=== PATIENT | female | born 1965 | race Asian ===

== ENCOUNTER 2019-07-20 18:01 | Emergency (ER) | payer OTHER ==
[2019-07-20 18:14] VITALS: BP 163/89
--- NOTE | 2019-07-20 19:05 | ED Physician Documentation ---
PD HPI URI - Stated complaint Stated Complaint: COUGHING - Chief complaint Chief Complaint: Heent - History obtained from History obtained from: Patient, Family () - History of Present Illness Timing - onset: Other (For about 1.5 to 2 months she has had a severe cough. Is minimally productive. She has mild shortness of breath with it. No fevers. She is been seen a couple of times in the [place]. Per the she had a negative chest x-ray approximately 2 years ago. She was given a panopoly of allergy medications with out relief.) Review of Systems Constitutional: denies: Fever, Chills Cardiac: denies: Chest pain / pressure, Palpitations, Pedal edema, Calf pain Respiratory: denies: Hemoptysis, Wheezing GI: denies: Abdominal Pain, Abdominal Swelling, Nausea, Vomiting PD PAST MEDICAL HISTORY - Present Medications Home Medications: Ambulatory Orders Medication Instructions Recorded Confirmed Azelastine/Fluticasone [Dymista 23 gm NS 07/20/19 Nasal [place]] Benzonatate [Tessalon Perle] 100 - 200 mg PO TID PRN #30 capsule 07/20/19 Doxycycline Hyclate 100 mg PO BID #20 capsule 07/20/19 Fexofenadine HCl [Rebecca Allergy] 60 mg PO 07/20/19 07/20/19 guaiFENesin/CODEINE [Robitussin AC] 5 - 10 ml PO Q6H PRN #120 ml 07/20/19 predniSONE [Deltasone] 20 mg PO [id number] #21 tab 07/20/19 - Allergies Allergies/Adverse Reactions: Allergies Allergy/AdvReac Type Severity Reaction Status Date / Time No Known Drug Allergies Allergy Verified 07/20/19 18:11 - Social History Does the pt smoke?: No Smoking Status: Never smoker PD ED PE NORMAL - Vitals Vital signs reviewed: Yes - General General: Alert and oriented X 3, Other (Frequent bronchitic cough) - HEENT HEENT: Pharynx benign - Cardiac Cardiac: RRR, No murmur - Respiratory Respiratory: No respiratory distress, Other (Slightly diminished throughout, nonlabored, frequent coughing) - Abdomen Abdomen: Non tender - Extremities Extremities: No edema, No calf tenderness / cord - Neuro Neuro: Alert and oriented X 3, Normal speech Results - Vitals Vitals: Vital Signs - 24 hr 07/20/19 18:11 Temperature 36.9 C Heart Rate 93 Respiratory 15 Rate Blood Pressure 163/89 H O2 Saturation 100 Oxygen O2 Source Room air PD MEDICAL DECISION MAKING - ED course ED course: Given the time course she does fit IDSA criteria for a trial of antibiotic therapy. Departure - Departure Disposition: 01 Home, Self Care Clinical Impression: Cough Condition: Good Record reviewed to determine appropriate education?: Yes Instructions: Bronchitis Acute Dc Prescriptions: Benzonatate [Tessalon Perle] 100 - 200 mg PO TID PRN #30 capsule PRN Reason: Cough Doxycycline Hyclate 100 mg PO BID #20 capsule guaiFENesin/CODEINE [Robitussin AC] 5 - 10 ml PO Q6H PRN #120 ml PRN Reason: Cough predniSONE [Deltasone] 20 mg PO [id number] #21 tab Comments: Call your doctor to arrange a follow-up appointment, make the next available appointment. In the interim, return anytime if worse or if new symptoms develop.
== END 2019-07-20 19:09 | disposition home or self-care (01) ==
LOC: ED 18:01
DX: R05 Cough (principal); R06.02 Shortness of breath
CPT/HCPCS: 99283; 99284

== ENCOUNTER 2020-12-02 09:28 | Emergency (ER) | payer OTHER ==
[2020-12-02 10:00] LABS: BILIRUBIN,URINE NEGATIVE (NEGATIVE); GLUCOSE, URINE (UA) NEGATIVE (NEGATIVE); KETONES,URINE (UA) NEGATIVE (NEGATIVE); LEUKOCYTE ESTERASE, URINE LARGE (NEGATIVE); NITRITE,URINE NEGATIVE (NEGATIVE); OCCULT BLOOD,URINE LARGE (NEGATIVE); PROTEIN,URINE NEGATIVE (NEGATIVE); UROBILINOGEN,URINE 0.2 (NORMAL) E.U./dL (NORMAL)
[2020-12-02 10:01] LABS: CLARITY,URINE SL. CLOUDY (CLEAR)
[2020-12-02 10:02] LABS: HCG UR QUAL NEGATIVE
[2020-12-02 10:14] LABS: BACTERIA,URINE Moderate /HPF (None Seen); RBC,URINE TNTC /HPF (0-5); SQUAMOUS EPITHELIAL CELL,UR RARE Squamous (<= Few); WBC,URINE >25 /HPF (0-5)
[2020-12-02] MEDS ORDERED: NITROFURANTOIN MACRO 100 MG CAPSULE PO STA (10:24)
[2020-12-02] MEDS ORDERED: PHENAZOPYRIDINE 100 MG TABLET PO STA (10:24)
--- NOTE | 2020-12-02 10:25 | ED Physician Documentation ---
PD HPI FEMALE - Stated complaint Stated Complaint: FEMALE - Chief complaint Chief Complaint: UTI - History obtained from History obtained from: Patient - Additional information Additional information: Starting in the middle of the night last night she has had dysuria and frequency, also some hematuria. No flank pain or fevers. Review of Systems Constitutional: denies: Fever, Chills GI: reports: Reviewed and negative : reports: Dysuria, Frequency PD PAST MEDICAL HISTORY - Past Medical History Past Medical History: Yes Respiratory: Asthma Musculoskeletal: Osteoarthritis - Past Surgical History Past Surgical History: Yes - Present Medications Home Medications: Ambulatory Orders Medication Instructions Recorded Confirmed Hydrochlorothiazide 25 mg PO DAILY 12/02/20 12/02/20 Losartan [Cozaar] 50 mg PO DAILY 12/02/20 12/02/20 Nitrofurantoin Monohyd/M-Cryst 100 mg PO BID #10 cap 12/02/20 [Macrobid 100 mg Capsule] Phenazopyridine HCl [Pyridium] 200 mg PO TID PRN #6 tab 12/02/20 - Allergies Allergies/Adverse Reactions: Allergies Allergy/AdvReac Type Severity Reaction Status Date / Time No Known Drug Allergies Allergy Verified 12/02/20 09:43 - Social History Does the pt smoke?: No Smoking Status: Never smoker Does the pt drink ETOH?: Yes Does the pt have substance abuse?: No - Immunizations Immunizations are current?: Yes PD ED PE NORMAL - Vitals Vital signs reviewed: Yes - General General: Alert and oriented X 3, No acute distress - Abdomen Abdomen: Soft, Non tender - Back Back: No CVA TTP - Derm Derm: No rash - Neuro Neuro: Alert and oriented X 3, Normal speech Results - Vitals Vitals: Vital Signs - 24 hr 12/02/20 09:41 Temperature 36.0 C L Heart Rate 90 Respiratory 16 Rate Blood Pressure 122/80 O2 Saturation 100 Oxygen O2 Source Room air - Labs Labs: Laboratory Tests 12/02/20 09:47 Urine Color STRAW Urine Clarity SL. CLOUDY Urine pH 7.0 Ur Specific [place] <=1.005 Urine Protein NEGATIVE Urine Glucose (UA) NEGATIVE Urine Ketones NEGATIVE Urine Occult Blood LARGE H Urine Nitrite NEGATIVE Urine Bilirubin NEGATIVE Urine Urobilinogen 0.2 (NORMAL) Ur Leukocyte Esterase LARGE H Urine RBC TNTC H Urine WBC >25 H Ur Squamous Epith Cells RARE Squamous Urine Bacteria Moderate H Ur Microscopic Review INDICATED Urine Culture Comments INDICATED Urine HCG, Qual NEGATIVE Departure - Departure Disposition: Home, Self Care Clinical Impression: Cystitis Condition: Good Record reviewed to determine appropriate education?: Yes Instructions: ED UTI Cystitis Female Prescriptions: Nitrofurantoin Monohyd/M-Cryst [Macrobid 100 mg Capsule] 100 mg PO BID #10 cap Phenazopyridine HCl [Pyridium] 200 mg PO TID PRN #6 tab PRN Reason: dysuria Comments: We will culture your urine, the results should be done in 48-72 hours. If an antibiotic change is necessary we will call you. Return if worse in the meantime, especially if you develop increasing flank pain, fevers, or cannot keep down the medication.
[2020-12-02 10:33] VITALS: BP 117/81
== END 2020-12-02 10:58 | disposition home or self-care (01) ==
LOC: ED 09:28
DX: N30.91 Cystitis, unspecified with hematuria (principal)
CPT/HCPCS: 81001; 81025; 87086; 87181; 99283; A9270; 81003

== ENCOUNTER 2020-12-04 14:38 | Outpatient (CLI) | payer OTHER ==
--- NOTE | 2020-12-05 09:48 | Mammography Report ---
BILATERAL DIGITAL SCREENING MAMMOGRAM 3D/2D: 12/04/2020 CLINICAL: Routine screening. Comparison is made to exam dated: 11/13/2016 mammogram - [facility]. There are scatter ed fibroglandular elements in both breasts. There is a 0.5 cm irregular asymmetry with an indistinct margin in the right breast middle depth medi al region seen on the craniocaudal view only 6 cm from the nipple. No other significant masses, calcifications, or other findings are seen in either breast. IMPRESSION: INCOMPLETE: NEEDS ADDITIONAL IMAGING EVALUATION The 0.5 cm irregular asymmetry in the right breast is indeterminate. Additional views with possible ultrasound are recommended. This exam was interpreted at Station ID: [id number]. NOTE: For mammograms, a report in lay terms will be sent to the patient. Approximately 15% of breast malignancies will not be visualized mammographically. In the management of a palpable breast mass, a negative mammogram must not discourage biopsy of a clinically suspicious lesion. Electronically Signed By: Heber Frost acr/:12/04/2020 15:54:08 ACR BI-RADS Category 0: Incomplete 3340F PARENCHYMAL PATTERN: (A) - The breast(s) demonstrate(s) scattered fibroglandular densities. BI-RADS CATEGORY: (0) - 0 Mammo and [place] [id number] Immediate follow-up LATERALITY: (R)
== END 2020-12-04 14:39 | disposition home or self-care (01) ==
LOC: DI.N 14:38
DX: Z12.31 Encounter for screening mammogram for malignant neoplasm of breast (principal); N64.89 Other specified disorders of breast

== ENCOUNTER 2020-12-19 09:41 | Outpatient (CLI) | payer OTHER ==
--- NOTE | 2020-12-20 14:18 | Mammography Report ---
UNILATERAL RIGHT DIGITAL DIAGNOSTIC MAMMOGRAM 3D/2D: 12/19/2020 CLINICAL: Patient returns today to evaluate a focal asymmetry in the right breast. Comparison is made to exams dated: 12/04/2020 mammogram - [facility] and 11/13/2016 ma mmogram - [facility]. The tissue of right breast is heterogeneously dense. This may l ower the sensitivity of mammography. Redemonstration of previously described 0.5 cm oval focal asymmetry in the right breast at 1 o'clock posterior depth. This is seen in additional views and best visualized in the craniocaudal view. Thi s is a new finding compared to mammogram dated 2017. No other significant masses or calcifications are seen in the breast. IMPRESSION: INCOMPLETE: NEEDS ADDITIONAL IMAGING EVALUATION The 0.5 cm oval focal asymmetry in the right breast is indeterminate. An ultrasound is recommended for further evaluation and is scheduled to immediately follow this exami nation. This exam was interpreted at Station ID: [id number]. NOTE: For mammograms, a report in lay terms will be sent to the patient. Approximately 15% of breast malignancies will not be visualized mammographically. In the management of a palpable breast mass, a negative mammogram must not discourage biopsy of a clinically suspicious lesion. Electronically Signed By: Az Maldonado M.D. aty/:12/19/2020 10:23:37 ACR BI-RADS Category 0: Incomplete 3340F PARENCHYMAL PATTERN: (D) - The breast(s) demonstrate(s) heterogeneously dense fibroglandular parenchy janee. BI-RADS CATEGORY: (0) - 0 Ultrasound [id number] Immediate follow-up LATERALITY: (R)
--- NOTE | 2020-12-20 14:18 | Ultrasound Report ---
LIMITED ULTRASOUND OF RIGHT BREAST: 12/19/2020 CLINICAL: Patient returns today to evaluate a focal asymmetry in the right breast. Comparison is made to exams dated: 12/19/2020 mammogram, 12/04/2020 mammogram - [facility], and 11/13/2016 mammogram - [facility]. Real-time ultrasound of the right breast 1-3 o'clock region was performed. Delaney scale images of the real-time examination were reviewed. No significant abnormalities were seen sonographically in the right breast. IMPRESSION: SUSPICIOUS OF MALIGNANCY There is no abnormality seen in the right breast to correspond with the new 0.5 cm focal asymmetry se en in the posterior depth in the upper inner quadrant, however, this is a suspicious finding and a st ereotactic biopsy is recommended. Findings and recommendations were discussed with the patient during today's examination by Dr. Hernandez. This exam was interpreted at Station ID: [id number]. Electronically Signed By: Az Maldonado M.D. aty/:12/19/2020 11:12:00 Ultrasound BI-RADS: 4 Suspicious for malignancy BI-RADS CATEGORY: (4) - 4 None [id number] Immediate follow-up LATERALITY: ()
== END 2020-12-19 09:42 | disposition home or self-care (01) ==
LOC: DI 09:41
PROVIDERS: ATTEND Student in an Organized Health Care Education/Training Program
DX: R92.8 Other abnormal and inconclusive findings on diagnostic imaging of breast (principal); N64.9 Disorder of breast, unspecified